=== PATIENT | male | born 1960 | race Caucasian/White ===

== ENCOUNTER 2017-10-11 11:42 | Day surgery (SDC) | payer OTHER ==
[2017-10-11] MEDS: NS 1,000 ML IV (12:45)
[2017-10-11] MEDS ORDERED: PROPOFOL 200 MG/20 ML VIAL As Ordered ×2 (13:18)
== END 2017-10-11 14:09 | disposition home or self-care (01) ==
LOC: M OPP 11:42
DX: K62.5 Hemorrhage of anus and rectum (principal); Z86.010 Personal history of colon polyps; K64.0 First degree hemorrhoids; K57.30 Diverticulosis of large intestine without perforation or abscess without bleeding; I10 Essential (primary) hypertension; K21.9 Gastro-esophageal reflux disease without esophagitis; M19.90 Unspecified osteoarthritis, unspecified site; G43.909 Migraine, unspecified, not intractable, without status migrainosus; Z96.651 Presence of right artificial knee joint; Z79.899 Other long term (current) drug therapy
CPT/HCPCS: 45378

== ENCOUNTER 2019-08-18 11:26 | Emergency (ER) | payer OTHER ==
[~2019-08-18] VITALS: Ht 185.4 cm; Wt 102.3 kg
[~2019-08-18 11:26] MED LIST: LOSA50TA88 PO; MELO15TA28 PO; RANI-397 PO
[2019-08-18] MEDS ORDERED: FAMO20TA PO (11:34)
[2019-08-18] MEDS ORDERED: IBUPROFEN 400 MG TAB PO ONE (11:45)
[2019-08-18] MEDS ORDERED: ACETAMINOPHEN 500 MG TAB PO ONE (11:45)
[2019-08-18 12:46] VITALS: BP 137/77
--- NOTE | 2019-08-18 13:50 | REP ---
Soft-tissue ultrasound Achilles tendon: History: Question Achilles tendon tear. Pain/defect. There is a comparison radiographic series of the left foot from August 30, 2014. This shows Achilles calcaneal spurring. Findings: There is a tiny sliver of pre-Achilles fluid at the calcaneal insertion. The distal Achilles tendon appears intact at the insertion. The more proximal Achilles tendon shows heterogeneous signal intensity with areas of echogenicity consistent with calcification and some swelling is seen at the myotendinous junction. These changes are consistent with chronic Achilles tendonitis tendinopathy. The largest hyperechoic focus within this portion of the Achilles tendon measures 5 mm in greatest diameter and there is slight swelling of the tendon at this level. Impression: Findings consistent with chronic Achilles tendinopathy with intratendinous echogenic foci casting acoustic shadowing consistent with calcifications. There is some thickening at the muscle tendon junction. A tiny sliver of pre-Achilles fluid is seen at the distal insertion. Prior radiograph showed distal Achilles calcaneal spurring. No sonographic evidence of acute tear. Electronically Signed by Evelio Bustos MD 08/18/2019 04:12 P
== END 2019-08-18 13:22 | disposition home or self-care (01) ==
LOC: M ED 11:26
DX: M77.32 Calcaneal spur, left foot (principal); M76.62 Achilles tendinitis, left leg; W19.XXXA Unspecified fall, initial encounter; Y92.22 Religious institution as the place of occurrence of the external cause; Y93.89 Activity, other specified; Y99.9 Unspecified external cause status; I10 Essential (primary) hypertension; K21.9 Gastro-esophageal reflux disease without esophagitis; Z79.899 Other long term (current) drug therapy

== ENCOUNTER → 2020-08-28 | Outpatient (CLI) | payer OTHER ==
[~2020-08-28] MED LIST changes: +FAMO20TA PO; +PROHANCE 279.3MG/ML 15ML VIAL As Ordered ONE; +PROHANCE 279.3MG/ML 5ML VIAL As Ordered ONE
--- NOTE | 2020-08-28 11:37 | REP ---
INDICATION: NEOPLASM OF OTH SPECIFIED SITES. Right lower abdomen pain. CT revealed abnormalities of the pancreas. MRI for further evaluation. COMPARISON: Comparison CT study from [facility] is retrieved dated August 25, 2020.. TECHNIQUE: Axial and coronal imaging planes utilized. T1 and T2 weighted sequences include spin echo, fast spin echo, in and out of phase, and dynamically acquired sequential post gadolinium enhanced images. Gadolinium enhancement dose is 20 mL of ProHance. FINDINGS: There is no evidence of pleural effusion or upper abdominal ascites. No filling defect is seen within the gallbladder. No liver mass lesion is seen. Normal adrenal glands are observed bilaterally. There is no evidence of upper abdominal or retroperitoneal lymphadenopathy. The spleen is unremarkable in size and homogeneous in texture as visualized. There are 2 small simple cortical cysts in the right kidney upper pole. In the left upper pole there is a slightly complex cyst measuring 2.0 cm in greatest diameter. This shows intermediate T2 and T1 signal intensity but no evidence of contrast enhancement. No hydronephrosis or renal mass is observed. There is a microlobulated cystic mass lesion in the body of the pancreas. This measures 3.2 x 2.4 x 2.2 cm in diameter. It is well-defined with multiple tiny cystic components and septations. Dynamically acquired cyst sequential postcontrast images show no definite internal enhancement. Also noted is a nonenhancing simple appearing cystic lesion in the pancreatic tail near the splenic hilus. This 2nd cystic pancreatic lesion measures 1.5 cm in greatest diameter. There are 2 or 3 tiny 1-2 mm cyst in the body of the pancreas. No pancreatic ductal dilation is observed. It is difficult to tell with confidence whether either of these cystic lesions communicate with pain main pancreatic duct. The main pancreatic duct is not dilated along the course of the pancreas. No biliary ductal dilation is observed. There is no evidence of regional lymphadenopathy. IMPRESSION: There are 2 cystic lesions in the pancreas. The largest of these is in the body of the pancreas measuring 3.2 cm in greatest diameter. 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 The distal pancreatic tail cyst may be a simple cyst or a 2nd IPMN. There is no evidence of regional adenopathy or metastatic disease. Consideration could be given to transgastric endoscopic ultrasound evaluation of the pancreatic lesions. There is a minimally complex cyst at the upper pole of the left kidney 2 cm in diameter. <Electronically signed by Burke Bustos > 08/28/20 [id number]
== END ==
LOC: M RAD 09:35
PROVIDERS: ATTEND Physician Assistant
DX: D37.8 Neoplasm of uncertain behavior of other specified digestive organs (principal)
CPT/HCPCS: 74183; A9576

== ENCOUNTER 2022-08-22 16:15 | Emergency (ER) | payer OTHER ==
[~2022-08-22] VITALS: Ht 185.4 cm; Wt 99.4 kg
[~2022-08-22 16:15] MED LIST changes: +LOSA50TA28 PO; -LOSA50TA88 PO; -PROHANCE 279.3MG/ML 15ML VIAL As Ordered ONE; -PROHANCE 279.3MG/ML 5ML VIAL As Ordered ONE
[2022-08-22 16:16] VITALS: BP 139/86
[2022-08-22] MEDS ORDERED: ACET-897 PO (16:33)
[2022-08-22] MEDS ORDERED: CLAR5TAB7 PO (17:11)
[2022-08-22] MEDS ORDERED: MOXI1TAB PO (17:11)
== END 2022-08-22 17:38 | disposition home or self-care (01) ==
LOC: M ED 16:15
DX: J20.9 Acute bronchitis, unspecified (principal); I10 Essential (primary) hypertension; R19.7 Diarrhea, unspecified; Z79.899 Other long term (current) drug therapy

== ENCOUNTER 2023-04-26 11:14 | Day surgery (SDC) | payer OTHER ==
[~2023-04-26] VITALS: Ht 185.4 cm; Wt 100.2 kg
[~2023-04-26 11:14] MED LIST changes: +ACET-897 PO; +CLAR5TAB7 PO; +METO1TAB32 PO; +MOXI1TAB PO; +NS 1,000 ML IV ONE; +SYNT25TA PO
[2023-04-26] MEDS ORDERED: propofoL 200 MG/20 ML VIAL As Ordered ONE ×2 (13:21→13:32)
[2023-04-26] MEDS ORDERED: LIDOCAINE 2% 100MG/5ML SDV (FOR ANES.) As Ordered ONE (13:21)
[2023-04-26 13:43] VITALS: TEMP 98.1
[2023-04-26 14:12] VITALS: BP 98/56; O2SAT 98
== END 2023-04-26 14:14 | disposition home or self-care (01) ==
LOC: M OPP 11:14
PROVIDERS: ATTEND Internal Medicine Gastroenterology
DX: Z12.11 Encounter for screening for malignant neoplasm of colon (principal); K64.8 Other hemorrhoids; K57.30 Diverticulosis of large intestine without perforation or abscess without bleeding; Z86.010 Personal history of colon polyps; I10 Essential (primary) hypertension; E03.9 Hypothyroidism, unspecified; Z87.19 Personal history of other diseases of the digestive system; G47.30 Sleep apnea, unspecified; Z79.899 Other long term (current) drug therapy; Z79.890 Hormone replacement therapy

== ENCOUNTER → 2023-12-06 | Outpatient (CLI) | payer OTHER, MEDICARE ==
[~2023-12-06] MED LIST changes: -NS 1,000 ML IV ONE
== END ==
LOC: M PLAIMG 14:42
PROVIDERS: ATTEND Internal Medicine Cardiovascular Disease
DX: R94.31 Abnormal electrocardiogram [ECG] [EKG] (principal)

== ENCOUNTER → 2025-01-15 | Outpatient (CLI) | payer OTHER, MEDICARE | LOC: M RAD 11:11 | PROVIDERS: ATTEND Physician Assistant | DX: I73.9 Peripheral vascular disease, unspecified (principal) ==